=== PATIENT | female | born 1945 | race Two or more races ===

== ENCOUNTER 2021-03-25 11:53 | Emergency (ER) | payer OTHER ==
[~2021-03-25] VITALS: Ht 154.9 cm; Wt 63.5 kg
[2021-03-25] MEDS ORDERED: ACETAMINOPHEN 650 MG RECT SUPP PR ONE (12:15)
[2021-03-25] MEDS ORDERED: SODIUM CHLORIDE 0.9% 1,000 ML IV ONE (13:00)
[2021-03-25] MEDS ORDERED: SODIUM CHLORIDE 0.9% 500 ML IV ONE (13:00)
[2021-03-25] MEDS ORDERED: ACETAMINOPHEN 500 MG TAB PO ONE (13:13)
[2021-03-25] MEDS ORDERED: cefTRIAXone 1GM/50ML D5W 50 ML IV ONE (13:15)
[2021-03-25 13:16] LABS: Basophils # (auto) 0.1 10 ^3/uL (0-0.2); Basophils % (auto) 0.5 % (0.0-2.0); Eosinophils # (auto) 0 10 ^3/uL (0-0.8); Eosinophils % (auto) 0.1 % (0.0-7.0); Hemoglobin 13.5 g/dL (12.2-16.2); Lymphocytes # (auto) 0.8 10 ^3/uL (0.4-5.4); Lymphocytes % (auto) 7.5 % (10.0-50.0); Mean Corpuscular Hemoglobin 29.5 pg (28.0-32.0); Mean Corpuscular Hgb Conc. 33.7 g/dL (32.0-36.0); Mean Corpuscular Volume 87.4 fL (80.0-100.0); Monocytes # (auto) 0.8 10 ^3/uL (0-1.3); Monocytes % (auto) 7.8 % (0.0-12.0); Neutrophils # (auto) 9.2 10 ^3/uL (1.6-8.6); Neutrophils % (auto) 84.1 % (37.0-80.0); Nucleated Red Blood Cells % 0.2 %; Red Blood Cells 4.58 10^6/uL (4.0-5.20); White Blood Cell 10.9 10^3/uL (4.4-10.8)
[2021-03-25 13:30] LABS: Albumin 3.2 g/dL (3.4-5.0); Anion Gap 8 (5-15); Blood Urea Nitrogen 27 mg/dL (7-18); Calcium 8.3 mg/dL (8.5-10.1); Carbon Dioxide 22 mmol/L (21-32); Chloride 104 mmol/L (98-107); Glucose 134 mg/dL (74-106); Potassium 4.1 mmol/L (3.5-5.1); Sodium 134 mmol/L (136-145)
[2021-03-25 13:36] LABS: Alanine Aminotransferase 19 U/L (13-56); Alkaline Phosphatase 96 U/L (45-117); Aspartate Aminotransferase 14 U/L (15-37); BUN/Creatinine Ratio 25.5; Bilirubin, Total 0.2 mg/dL (0.2-1.0); GFR African American 65 mL/min; GFR Non-African American 53 mL/min; Total Protein 8.1 g/dL (6.4-8.2)
[2021-03-25 16:19] LABS: Urine Bacteria FEW /hpf (None Seen); Urine Blood Negative /uL (Negative); Urine Mucus FEW (None Seen); Urine Specific Gravity 1.015 (1.001-1.035); Urine WBC 9 /hpf (0 - 5)
[2021-03-25] MEDS: MAGNESIUM SULFATE 1GM/100ML 100 ML IV SCH ×3 (17:00→18:44)
[2021-03-25 19:30] VITALS: BP 110/62
== END 2021-03-25 20:45 | disposition home or self-care (01) ==
LOC: EDBD 11:53 → ER 11:53
DX: R53.1 Weakness (principal); E83.42 Hypomagnesemia; N39.0 Urinary tract infection, site not specified; E46 Unspecified protein-calorie malnutrition; I12.9 Hypertensive chronic kidney disease with stage 1 through stage 4 chronic kidney disease, or unspecified chronic kidney disease; E11.22 Type 2 diabetes mellitus with diabetic chronic kidney disease; N18.9 Chronic kidney disease, unspecified; Z68.26 Body mass index [BMI] 26.0-26.9, adult; Z20.822 Contact with and (suspected) exposure to COVID-19
CPT/HCPCS: 36415; 71045; 80053; 81001; 83605; 83735; 84484; 85025; 87040; 87077; 87186; 87426; 93005; 96361; 96365; 96366; 96367; 99285; J0696; J3475; J7030; J7040